=== PATIENT | male | born 1970 ===

== ENCOUNTER → 2019-01-18 21:21 | Outpatient (ROUT) | payer OTHER, SELFPAY ==
[2019-01-18 23:56] LABS: Hemoglobin A1C% w Est Avg Glu 5.5 % (4.0-6.0)
[2019-01-18 23:58] LABS: Alanine Aminotransferase 70 IU/L (21-72); Glucose 109 mg/dL (70-100); Triglycerides 195 mg/dL (35-150)
== END ==
PROVIDERS: Visit Provider Family Medicine
DX: R73.9 Hyperglycemia, unspecified (principal); E78.5 Hyperlipidemia, unspecified; R50.9 Fever, unspecified
CPT/HCPCS: 36415; 82728; 82947; 83036; 84460; 84478